=== PATIENT | female | born 1945 | race Caucasian/White ===

== ENCOUNTER → 2018-01-25 | Outpatient (CLI) | payer MEDICARE, OTHER ==
[~2018-01-25] MED LIST: LISI5 PO; PARO25 PO; Pepcid20 MG PO; Prednisone20 MG PO
== END | disposition home or self-care (01) ==
LOC: LAB EV 13:27 → LAB SHORT 13:27
DX: R05 Cough (principal)
CPT/HCPCS: 87070

== ENCOUNTER → 2021-03-16 | Outpatient (CLI) | payer MEDICARE, OTHER ==
[2021-03-16 14:01] LABS: BASOPHILS ABSOLUTE AUTO 0.02 K/mm3 (0.00-0.23); BASOPHILS PERCENT AUTO 1 % (0-2); EOSINOPHILS ABSOLUTE AUTO 0.09 K/mm3 (0.00-0.68); EOSINOPHILS PERCENT AUTO 3 % (0-6); Hematocrit 42.9 % (33.0-51.0); Hemoglobin 13.6 g/dL (11.5-16.0); IMMATURE GRAN ABSOLUTE AUTO 0.03 K/mm3 (0.00-0.10); IMMATURE GRAN PERCENT AUTO 1 % (0-1); LYMPHOCYTES ABSOLUTE AUTO 1.06 K/mm3 (0.84-5.20); LYMPHOCYTES PERCENT AUTO 29 % (21-46); MONOCYTES ABSOLUTE AUTO 0.32 K/mm3 (0.16-1.47); MONOCYTES PERCENT AUTO 9 % (4-13); Mean Corpuscular HGB 33.7 pg (26.0-34.0); Mean Corpuscular HGB Conc 31.7 g/dL (31.5-36.5); Mean Corpuscular Volume 106 fL (80-100); Mean Platelet Volume 10.9 fL (9.1-12.4); NEUTROPHILS ABSOLUTE AUTO 2.11 K/mm3 (1.96-9.15); NEUTROPHILS PERCENT AUTO 58 % (41-73); Platelet Count 246 K/mm3 (150-400); RDW Coefficient Variation 13.1 % (11.7-14.2); RDW Standard Deviation 51.5 fL (35.1-46.3); Red Blood Cell Count 4.04 M/mm3 (3.80-5.20); White Blood Cell Count 3.63 K/mm3 (4.00-11.30)
[2021-03-16 14:28] LABS: Albumin, Blood 3.6 g/dL (3.4-5.0); Albumin/Globulin Ratio 0.9 (0.8-1.8); Bilirubin, Total 0.2 mg/dL (0.1-1.0); Bun/Creatinine Ratio 12.7 (12.0-20.0); Calcium, Blood 10.1 mg/dL (8.5-10.1); Creatinine, Blood 1.1 mg/dL (0.40-1.00); Globulin, Blood 3.9 g/dL (2.2-4.0); Potassium, Blood 4.8 mmol/L (3.5-5.5); Total Protein, Blood 7.5 g/dL (6.4-8.2)
== END | disposition home or self-care (01) ==
LOC: LAB SHORT 12:26 → LAB 12:26
PROVIDERS: Internal Medicine Rheumatology
DX: L40.50 Arthropathic psoriasis, unspecified (principal)
CPT/HCPCS: 80053; 85025; 85651

== ENCOUNTER 2021-03-28 09:27 | Emergency (ER) | payer MEDICARE, OTHER ==
[~2021-03-28] VITALS: Ht 170.2 cm; Wt 81.7 kg
[2021-03-28] MEDS ORDERED: OMEP20ER PO (13:10)
[2021-03-28] MEDS ORDERED: Miralax17 GM PO (13:16)
[2021-03-28] MEDS ORDERED: Percocet 5-3251 EACH PO (13:16)
[2021-03-28 13:59] LABS: BASOPHILS ABSOLUTE AUTO 0.02 K/mm3 (0.00-0.23); BASOPHILS PERCENT AUTO 0 % (0-2); EOSINOPHILS ABSOLUTE AUTO 0.03 K/mm3 (0.00-0.68); EOSINOPHILS PERCENT AUTO 1 % (0-6); Hematocrit 42.6 % (33.0-51.0); Hemoglobin 13.9 g/dL (11.5-16.0); IMMATURE GRAN ABSOLUTE AUTO 0.03 K/mm3 (0.00-0.10); IMMATURE GRAN PERCENT AUTO 1 % (0-1); LYMPHOCYTES PERCENT AUTO 17 % (21-46); MONOCYTES ABSOLUTE AUTO 0.47 K/mm3 (0.16-1.47); MONOCYTES PERCENT AUTO 8 % (4-13); Mean Corpuscular HGB 33.6 pg (26.0-34.0); Mean Corpuscular HGB Conc 32.6 g/dL (31.5-36.5); Mean Corpuscular Volume 103 fL (80-100); Mean Platelet Volume 10.7 fL (9.1-12.4); NEUTROPHILS ABSOLUTE AUTO 4.45 K/mm3 (1.96-9.15); NEUTROPHILS PERCENT AUTO 74 % (41-73); Platelet Count 215 K/mm3 (150-400); RDW Coefficient Variation 12.9 % (11.7-14.2); RDW Standard Deviation 49.1 fL (35.1-46.3); Red Blood Cell Count 4.14 M/mm3 (3.80-5.20)
[2021-03-28 14:24] LABS: Albumin, Blood 3.8 g/dL (3.4-5.0); Bilirubin, Total 0.6 mg/dL (0.1-1.0); Creatinine, Blood 1.08 mg/dL (0.40-1.00); Globulin, Blood 3.9 g/dL (2.2-4.0); Potassium, Blood 4.5 mmol/L (3.5-5.5); Total Protein, Blood 7.7 g/dL (6.4-8.2)
[2021-03-28 15:29] LABS: SARS-Cov-2 (COVID-19) PCR, MMC NEGATIVE (NEGATIVE)
[2021-03-29] MEDS ORDERED: PEPCID20 MG PO (14:11)
[2021-03-29] MEDS ORDERED: PRED20 PO (14:12)
== END 2021-03-28 14:30 | disposition home or self-care (01) ==
LOC: ER 09:27
PROVIDERS: Emergency Medicine
DX: S82.852A Displaced trimalleolar fracture of left lower leg, initial encounter for closed fracture (principal); I10 Essential (primary) hypertension; Z20.822 Contact with and (suspected) exposure to COVID-19; Z88.6 Allergy status to analgesic agent; Z88.8 Allergy status to other drugs, medicaments and biological substances; Z79.899 Other long term (current) drug therapy; W19.XXXA Unspecified fall, initial encounter
CPT/HCPCS: 27818; 73590; 73600; 73610; 80053; 85025; 96374; 99152; 99284-25; J1170; J2704; J7030; U0004

== ENCOUNTER 2021-03-30 09:38 | Day surgery (SDC) | payer MEDICARE, OTHER ==
[~2021-03-30] VITALS: Ht 170.2 cm; Wt 78.5 kg
[~2021-03-30 09:38] MED LIST changes: +Miralax17 GM PO; +OMEP20ER PO; +PEPCID20 MG PO; +PRED20 PO; +Percocet 5-3251 EACH PO
[2021-03-30] MEDS ORDERED: OMEP20ER (10:25)
[2021-03-30] MEDS ORDERED: CYAN500 (10:26)
[2021-03-30] MEDS ORDERED: VITAMIN D310 MC4 (10:26)
[2021-03-30] MEDS ORDERED: COSENTYX P150 MG/11 SQ (10:27)
[2021-03-30] MEDS ORDERED: CODACE30 PO (10:28)
== END 2021-03-30 15:06 | disposition home or self-care (01) ==
LOC: ORSCMMR 09:38 → ORSCSDS 09:38 → ORSCMMR 11:00
PROVIDERS: Orthopaedic Surgery
PROC: 0QSK04Z Reposition Left Fibula with Internal Fixation Device, Open Approach (ICD-10-PCS; principal; 2021-03-30 11:00)
PROC: 0QSH04Z Reposition Left Tibia with Internal Fixation Device, Open Approach (ICD-10-PCS; principal; 2021-03-30 11:00)
PROC: 0QSH0ZZ Reposition Left Tibia, Open Approach (ICD-10-PCS; principal; 2021-03-30 11:00)
DX: S82.852A Displaced trimalleolar fracture of left lower leg, initial encounter for closed fracture (principal); I10 Essential (primary) hypertension; Z87.891 Personal history of nicotine dependence; E78.5 Hyperlipidemia, unspecified; K21.9 Gastro-esophageal reflux disease without esophagitis; N18.9 Chronic kidney disease, unspecified; Z79.899 Other long term (current) drug therapy
CPT/HCPCS: 93005; 93010; A9270; C1713; C1769; J0690; J1100; J2250; J2370; J2405; J2704; J3010; J7120

== ENCOUNTER → 2021-10-03 | Outpatient (CLI) | payer MEDICARE, OTHER ==
[~2021-10-03] MED LIST changes: +CODACE30 PO; +COSENTYX P150 MG/11 SQ; +CYAN500; +OMEP20ER; +VITAMIN D310 MC4
[2021-10-03 15:38] LABS: Creatinine Urine 44.7 mg/dL (27.00-270.00)
[2021-10-03 15:44] LABS: Calcium, Urine 5.1 mg/dL (< 17.5)
== END | disposition home or self-care (01) ==
LOC: LAB SHORT 08:30
PROVIDERS: Internal Medicine Endocrinology, Diabetes & Metabolism
DX: E21.0 Primary hyperparathyroidism (principal)
CPT/HCPCS: 81050; 82340; 82570

== ENCOUNTER → 2022-04-19 | Outpatient (CLI) | payer MEDICARE, OTHER ==
[2022-04-19 18:12] LABS: BASOPHILS ABSOLUTE AUTO 0.02 K/mm3 (0.00-0.23); BASOPHILS PERCENT AUTO 0 % (0-2); EOSINOPHILS ABSOLUTE AUTO 0.11 K/mm3 (0.00-0.68); EOSINOPHILS PERCENT AUTO 2 % (0-6); Hematocrit 39.2 % (33.0-51.0); IMMATURE GRAN ABSOLUTE AUTO 0.02 K/mm3 (0.00-0.10); IMMATURE GRAN PERCENT AUTO 0 % (0-1); LYMPHOCYTES ABSOLUTE AUTO 1.25 K/mm3 (0.84-5.20); LYMPHOCYTES PERCENT AUTO 23 % (21-46); MONOCYTES ABSOLUTE AUTO 0.37 K/mm3 (0.16-1.47); MONOCYTES PERCENT AUTO 7 % (4-13); Mean Corpuscular HGB 34.2 pg (26.0-34.0); Mean Corpuscular HGB Conc 33.2 g/dL (31.5-36.5); Mean Corpuscular Volume 103 fL (80-100); Mean Platelet Volume 11.1 fL (9.1-12.4); NEUTROPHILS ABSOLUTE AUTO 3.62 K/mm3 (1.96-9.15); NEUTROPHILS PERCENT AUTO 67 % (41-73); Platelet Count 240 K/mm3 (150-400); RDW Coefficient Variation 12.9 % (11.7-14.2); White Blood Cell Count 5.39 K/mm3 (4.00-11.30)
[2022-04-19 19:19] LABS: Albumin/Globulin Ratio 1.2 (0.8-1.8); Bilirubin, Total 0.3 mg/dL (0.1-1.0); Bun/Creatinine Ratio 15.1 (12.0-20.0); Calcium, Blood 9.8 mg/dL (8.5-10.1); Creatinine, Blood 1.06 mg/dL (0.40-1.00); Globulin, Blood 3.3 g/dL (2.2-4.0); Potassium, Blood 4.8 mmol/L (3.5-5.5); Total Protein, Blood 7.3 g/dL (6.4-8.2)
== END | disposition home or self-care (01) ==
LOC: LAB 14:53 → LAB SHORT 14:53
PROVIDERS: Internal Medicine Rheumatology
DX: L40.50 Arthropathic psoriasis, unspecified (principal)
CPT/HCPCS: 80053; 85025; 85651

== ENCOUNTER → 2022-10-18 | Outpatient (CLI) | payer MEDICARE, OTHER ==
[2022-10-18 16:46] LABS: BASOPHILS ABSOLUTE AUTO 0.03 K/mm3 (0.00-0.23); BASOPHILS PERCENT AUTO 1 % (0-2); EOSINOPHILS ABSOLUTE AUTO 0.17 K/mm3 (0.00-0.68); EOSINOPHILS PERCENT AUTO 4 % (0-6); Hematocrit 39.5 % (33.0-51.0); Hemoglobin 12.9 g/dL (11.5-16.0); IMMATURE GRAN ABSOLUTE AUTO 0.01 K/mm3 (0.00-0.10); IMMATURE GRAN PERCENT AUTO 0 % (0-1); LYMPHOCYTES ABSOLUTE AUTO 1.29 K/mm3 (0.84-5.20); LYMPHOCYTES PERCENT AUTO 32 % (21-46); MONOCYTES ABSOLUTE AUTO 0.38 K/mm3 (0.16-1.47); MONOCYTES PERCENT AUTO 9 % (4-13); Mean Corpuscular HGB 33.5 pg (26.0-34.0); Mean Corpuscular HGB Conc 32.7 g/dL (31.5-36.5); Mean Corpuscular Volume 103 fL (80-100); Mean Platelet Volume 11.2 fL (9.1-12.4); NEUTROPHILS ABSOLUTE AUTO 2.16 K/mm3 (1.96-9.15); NEUTROPHILS PERCENT AUTO 54 % (41-73); Platelet Count 235 K/mm3 (150-400); RDW Coefficient Variation 13.4 % (11.7-14.2); RDW Standard Deviation 51.3 fL (35.1-46.3); Red Blood Cell Count 3.85 M/mm3 (3.80-5.20); White Blood Cell Count 4.04 K/mm3 (4.00-11.30)
[2022-10-18 17:13] LABS: Albumin, Blood 3.9 g/dL (3.4-5.0); Albumin/Globulin Ratio 1.1 (0.8-1.8); Bilirubin, Total 0.2 mg/dL (0.1-1.0); Bun/Creatinine Ratio 13.4 (12.0-20.0); Calcium, Blood 10.2 mg/dL (8.5-10.1); Creatinine, Blood 0.97 mg/dL (0.40-1.00); Globulin, Blood 3.4 g/dL (2.2-4.0); Potassium, Blood 5.4 mmol/L (3.5-5.5); Total Protein, Blood 7.3 g/dL (6.4-8.2)
== END | disposition home or self-care (01) ==
LOC: LAB SHORT 15:03 → LAB 15:03
PROVIDERS: Internal Medicine Rheumatology
DX: L40.50 Arthropathic psoriasis, unspecified (principal)
CPT/HCPCS: 80053; 85025; 85651

== ENCOUNTER → 2022-12-28 | Outpatient (CLI) | payer MEDICARE, OTHER | END | disposition home or self-care (01) | LOC: LAB SHORT 10:37 → LAB 10:37 | DX: N39.0 Urinary tract infection, site not specified (principal) | CPT/HCPCS: 87077; 87086; 87186 ==

== ENCOUNTER → 2023-01-25 | Outpatient (CLI) | payer MEDICARE, OTHER ==
[2023-01-25 14:52] LABS: BASOPHILS ABSOLUTE AUTO 0.03 K/mm3 (0.00-0.23); BASOPHILS PERCENT AUTO 1 % (0-2); EOSINOPHILS ABSOLUTE AUTO 0.33 K/mm3 (0.00-0.68); EOSINOPHILS PERCENT AUTO 8 % (0-6); Hematocrit 41.1 % (33.0-51.0); Hemoglobin 13.5 g/dL (11.5-16.0); IMMATURE GRAN ABSOLUTE AUTO 0.02 K/mm3 (0.00-0.10); IMMATURE GRAN PERCENT AUTO 1 % (0-1); LYMPHOCYTES ABSOLUTE AUTO 1.15 K/mm3 (0.84-5.20); LYMPHOCYTES PERCENT AUTO 26 % (21-46); MONOCYTES PERCENT AUTO 9 % (4-13); Mean Corpuscular HGB 33.8 pg (26.0-34.0); Mean Corpuscular HGB Conc 32.8 g/dL (31.5-36.5); Mean Corpuscular Volume 103 fL (80-100); NEUTROPHILS ABSOLUTE AUTO 2.46 K/mm3 (1.96-9.15); NEUTROPHILS PERCENT AUTO 56 % (41-73); Platelet Count 242 K/mm3 (150-400); RDW Coefficient Variation 13.2 % (11.7-14.2); RDW Standard Deviation 50.4 fL (35.1-46.3); White Blood Cell Count 4.39 K/mm3 (4.00-11.30)
[2023-01-25 15:20] LABS: Albumin/Globulin Ratio 1.1 (0.8-1.8); Bilirubin, Total 0.4 mg/dL (0.1-1.0); Bun/Creatinine Ratio 11.4 (12.0-20.0); Calcium, Blood 10.2 mg/dL (8.5-10.1); Creatinine, Blood 1.14 mg/dL (0.40-1.00); Globulin, Blood 3.5 g/dL (2.2-4.0); Potassium, Blood 4.1 mmol/L (3.5-5.5); Total Protein, Blood 7.5 g/dL (6.4-8.2)
== END | disposition home or self-care (01) ==
LOC: LAB SHORT 11:29 → LAB 11:29
PROVIDERS: Internal Medicine Rheumatology
DX: L40.50 Arthropathic psoriasis, unspecified (principal)
CPT/HCPCS: 80053; 85025; 85651

== ENCOUNTER 2024-03-10 10:00 | Day surgery (SDC) | payer MEDICARE, OTHER ==
[2024-03-10] VITALS (12 sets, daily range): BP systolic 118–144; BP diastolic 66–102
[~2024-03-10] VITALS: Ht 170.2 cm; Wt 80.1 kg
[~2024-03-10 10:00] MED LIST changes: -OMEP20ER
[2024-03-10] MEDS ORDERED: CeFAZolin Sodium 2,000 MG in NS 100 ML IV SCH ×2 (10:30→20:00)
[2024-03-10] MEDS ORDERED: Acetaminophen 500 MG Tab PO SCH ×2 (10:30→16:00)
[2024-03-10] MEDS ORDERED: Ropivacaine 0.5% HCl/Pf 123.125 MG,EPINEPHrine HCL 0.25 MG,Clonidine HCl/Pf 40 MCG in N... INFIL SCH (10:30)
[2024-03-10] MEDS ORDERED: OxyCODONE HCL 10 MG TABCR PO SCH (10:30)
[2024-03-10] MEDS ORDERED: Chlorhexidine Mouth Care 15 ML UDC MT SCH (10:30)
[2024-03-10] MEDS ORDERED: Lactated Ringer's 1,000 ML IV SCH ×2 (10:30→15:40)
[2024-03-10] MEDS ORDERED: Tranexamic Acid 100 ML IV SCH (10:36)
[2024-03-10] MEDS ORDERED: Vancomycin HCL 1,000 MG in NS 250 ML IV SCH (11:05)
[2024-03-10] MEDS ORDERED: CeFAZolin Sodium 2,000 MG VIAL ONE (11:06)
[2024-03-10] MEDS ORDERED: propofoL 60 ML IV ONE (11:30)
[2024-03-10] MEDS ORDERED: Midazolam HCl 1MG / ML 2ML Vial ONE (11:43)
--- NOTE | 2024-03-10 11:46 | NUR ---
PRE OP NOTE PT A&OX4, BREATHING RA, PAIN AT BASELINE 2/2 ARTHRITIS, Ambulatory in Day Surgery Patient confirms NPO status and agrees with scheduled surgery. Pre-Op teaching done. Pt verbalizes understanding. Surgical site prepped with 2% Chlorhexidine cloth wipe.PT MSSA+ AND DID NOT HAV THE 5 DAYS OF TREATMENTS, VANCO VERBAL ORDERED BY DR THOMAS AND STARTED PRIOR TO SURGERY. VANCO STARTED PB WITH SLOW DRIP AND NO PUMP PER DR HAIR. AT BEDSIDE.
[2024-03-10] MEDS ORDERED: Phenylephrine HCl 10mg/ml 1 ml Vial ONE (12:03)
--- NOTE | 2024-03-10 12:18 | NUR ---
03/10/24 1218 Mady Garcia SPINAL BLOCK COMPLETED BY UPON ENTRY TO OR. PATIENT TOLERATED WELL.
[2024-03-10] MEDS ORDERED: propofoL 40 ML IV ONE (12:36)
--- NOTE | 2024-03-10 14:10 | NUR ---
PT ARRIVED TO THE FLOOR VIA HOSPITAL BED. A&O X4. VSS. INCISION SITE C/D/I COVERED WITH AQUACEL. COLD PACK IN PLACE. WIGGLES TOES, PPP, UNABLE TO FEEL SENSATION AT THIS TIME. SNACKS AND WATER AT BEDSIDE. CALL LIGHT WITHIN REACH. BED IN LOWEST POSITION.
[2024-03-10] MEDS ORDERED: HYDROmorphone HCl/Pf 1MG SYR IV PRN (15:40)
[2024-03-10] MEDS ORDERED: OxyCODONE HCL 5 MG TAB PO PRN ×2 (15:40)
[2024-03-10] MEDS ORDERED: Ondansetron HCl 2 MG / ML 2ML Vial IV PRN (15:40)
[2024-03-10] MEDS ORDERED: DiphenhydrAMINE HCL 25 MG Cap PO PRN (15:40)
[2024-03-10] MEDS ORDERED: Apixaban 5 MG Tab PO SCH (21:00)
[2024-03-11 05:06] LABS: BASOPHILS ABSOLUTE AUTO 0.02 K/mm3 (0.00-0.23); BASOPHILS PERCENT AUTO 0 % (0-2); EOSINOPHILS ABSOLUTE AUTO 0.11 K/mm3 (0.00-0.68); EOSINOPHILS PERCENT AUTO 2 % (0-6); Hematocrit 34.1 % (33.0-51.0); Hemoglobin 10.9 g/dL (11.5-16.0); IMMATURE GRAN ABSOLUTE AUTO 0.04 K/mm3 (0.00-0.10); IMMATURE GRAN PERCENT AUTO 1 % (0-1); LYMPHOCYTES ABSOLUTE AUTO 0.54 K/mm3 (0.84-5.20); LYMPHOCYTES PERCENT AUTO 8 % (21-46); MONOCYTES PERCENT AUTO 7 % (4-13); Mean Corpuscular HGB 33.7 pg (26.0-34.0); Mean Corpuscular Volume 106 fL (80-100); Mean Platelet Volume 10.3 fL (9.1-12.4); NEUTROPHILS ABSOLUTE AUTO 6.03 K/mm3 (1.96-9.15); NEUTROPHILS PERCENT AUTO 83 % (41-73); Platelet Count 205 K/mm3 (150-400); RDW Coefficient Variation 13.2 % (11.7-14.2); RDW Standard Deviation 51.9 fL (35.1-46.3); Red Blood Cell Count 3.23 M/mm3 (3.80-5.20); White Blood Cell Count 7.24 K/mm3 (4.00-11.30)
--- NOTE | 2024-03-11 05:16 | NUR ---
SHIFT SUMMARY PT IS POD1 FOR L TKA. PT IS TOLERATING REG DIET AND FLUIDS, VOIDING, REPORTS RELIEF FROM PAIN W/ PO PAIN MEDS. SALINE LOCKED. SBA W/ FWW AND GB TO BATHROOM. DRESSING C/D/I. YEISON MARTINEZ, POLAR PACK ON. PT ASSISTED W/ DRESSING THIS MORNING AND IN RECLINER. CALL LIGHT IN PLACE. PLAN TO D/C TODAY AFTER PT.
[2024-03-11 05:42] LABS: Bun/Creatinine Ratio 10.2 (12.0-20.0); Calcium, Blood 8.8 mg/dL (8.5-10.1); Creatinine, Blood 1.28 mg/dL (0.40-1.00); Magnesium, Blood 1.8 mg/dL (1.6-2.4); Potassium, Blood 4.2 mmol/L (3.5-5.5)
[2024-03-11 05:45] VITALS: BP 115/80
[2024-03-11 07:15] VITALS: BP 115/79
[2024-03-11] MEDS ORDERED: ACET500 PO (07:45)
[2024-03-11] MEDS ORDERED: OXYC5 PO (07:45)
[2024-03-11] MEDS ORDERED: XARELTO10 M4 PO (07:46)
[2024-03-11] MEDS ORDERED: Omeprazole 20 MG CapCR PO SCH (09:00)
[2024-03-11] MEDS ORDERED: PARoxetine HCl 10 MG Tab PO SCH ×2 (09:00)
[2024-03-11] MEDS ORDERED: Lisinopril 5 MG Tab PO SCH (09:00)
--- NOTE | 2024-03-11 10:43 | NUR ---
DISCHARGE NOTE POD 1 LTKA. INCISION SITE C/D/I. EATING/DRINKING/VOIDING WITHOUT ISSUE. WORKED AND CLEARED BY PHYSICAL THERAPY THIS MORNING. PAIN MANAGED. VSS. PPP. DENIES N/T. EXPRESSED UNDERSTANDING OF DISCHARGE TEACHING BY KYLEE EUCEDA. SENT HOME WITH ADDITIONAL BANDAGES FOR USE AT HOME. IV WAS REMOVED PRIOR. WHEELED OUT TO HUSBANDS CAR VIA WHEELCHAIR.
--- NOTE | 2024-03-11 10:52 | NUR ---
DISCHARGE POD 1 LTKA PT AMBULATED WELL WITH THERAPY TODAY. PAIN CONTROLLED PER EMAR. ALL BELONGINGS SENT WITH PATIENT AND FAMILY. ALL QUESTIONS ANSWERED. EXTRA AQUACEL DRESSINGS SENT. CURRENT DRESSING REMAINS CDI. ESCORTED OUT VIA WHEELCHAIR.
[2024-03-11] MEDS ORDERED: Rivaroxaban 10 MG Tab PO SCH (13:00)
== END 2024-03-11 09:30 | disposition home or self-care (01) ==
LOC: ORSCMMR 10:00 → ORD 13:00 → ORSCMMR 13:00 → SURS 14:15 → ORD 15:45 → ORSCMMR 03-11 09:30
PROVIDERS: Orthopaedic Surgery
PROC: 0SRD0JA Replacement of Left Knee Joint with Synthetic Substitute, Uncemented, Open Approach (ICD-10-PCS; principal; 2024-03-10 11:30)
PROC: 8E0Y0CZ Robotic Assisted Procedure of Lower Extremity, Open Approach (ICD-10-PCS; principal; 2024-03-10 11:30)
DX: M17.12 Unilateral primary osteoarthritis, left knee (principal); E11.22 Type 2 diabetes mellitus with diabetic chronic kidney disease; I12.9 Hypertensive chronic kidney disease with stage 1 through stage 4 chronic kidney disease, or unspecified chronic kidney disease; N18.9 Chronic kidney disease, unspecified; Z87.891 Personal history of nicotine dependence; Z79.899 Other long term (current) drug therapy
CPT/HCPCS: 27447; 0055T; 36415; 73560-LT; 80048; 83735; 85025; 97110; 97162; 97530; A9270; C1713; C1776; J0171; J0690; J0735; J2250; J2371; J2704; J2795; J3370; J7050; J7120

== ENCOUNTER → 2024-07-31 | Outpatient (CLI) | payer MEDICARE, OTHER ==
[~2024-07-31] MED LIST changes: +ACET500 PO; +OXYC5 PO; +XARELTO10 M4 PO
[2024-07-31 16:27] LABS: Albumin, Blood 4.1 g/dL (3.4-5.0); Albumin/Globulin Ratio 1.2 (0.8-1.8); Bilirubin, Total 0.7 mg/dL (0.1-1.0); Bun/Creatinine Ratio 10.9 (12.0-20.0); Calcium, Blood 10.4 mg/dL (8.5-10.1); Creatinine, Blood 1.19 mg/dL (0.40-1.00); Globulin, Blood 3.3 g/dL (2.2-4.0); Potassium, Blood 4.5 mmol/L (3.5-5.5); Total Protein, Blood 7.4 g/dL (6.4-8.2)
[2024-07-31 16:32] LABS: BASOPHILS ABSOLUTE AUTO 0.03 K/mm3 (0.00-0.23); BASOPHILS PERCENT AUTO 1 % (0-2); EOSINOPHILS ABSOLUTE AUTO 0.33 K/mm3 (0.00-0.68); EOSINOPHILS PERCENT AUTO 6 % (0-6); Hematocrit 38.9 % (33.0-51.0); Hemoglobin 12.9 g/dL (11.5-16.0); IMMATURE GRAN ABSOLUTE AUTO 0.02 K/mm3 (0.00-0.10); IMMATURE GRAN PERCENT AUTO 0 % (0-1); LYMPHOCYTES ABSOLUTE AUTO 1.42 K/mm3 (0.84-5.20); LYMPHOCYTES PERCENT AUTO 24 % (21-46); MONOCYTES ABSOLUTE AUTO 0.41 K/mm3 (0.16-1.47); MONOCYTES PERCENT AUTO 7 % (4-13); Mean Corpuscular HGB 32.8 pg (26.0-34.0); Mean Corpuscular HGB Conc 33.2 g/dL (31.5-36.5); Mean Corpuscular Volume 99 fL (80-100); Mean Platelet Volume 10.7 fL (9.1-12.4); NEUTROPHILS ABSOLUTE AUTO 3.65 K/mm3 (1.96-9.15); NEUTROPHILS PERCENT AUTO 62 % (41-73); Platelet Count 238 K/mm3 (150-400); RDW Coefficient Variation 13.3 % (11.7-14.2); RDW Standard Deviation 48.2 fL (35.1-46.3); Red Blood Cell Count 3.93 M/mm3 (3.80-5.20); White Blood Cell Count 5.86 K/mm3 (4.00-11.30)
== END | disposition home or self-care (01) ==
LOC: LAB 14:20 → LAB SHORT 14:20
PROVIDERS: Internal Medicine Rheumatology
DX: L40.50 Arthropathic psoriasis, unspecified (principal)
CPT/HCPCS: 80053; 85025; 85651

== ENCOUNTER 2024-08-19 07:55 | Emergency (ER) | payer MEDICARE, OTHER ==
[~2024-08-19] VITALS: Ht 170.2 cm; Wt 74.8 kg
[2024-08-19] MEDS ORDERED: HYDHCL25 PO (09:08)
[2024-08-19] MEDS ORDERED: COSENTYX P150 MG/1 M SC (09:08)
[2024-08-19] MEDS ORDERED: LISI20 PO (09:09)
[2024-08-19] MEDS ORDERED: TRAVOPROST2.5 ML (09:09)
[2024-08-19] MEDS ORDERED: PAXIL2010 PO (09:09)
[2024-08-19] MEDS ORDERED: Acetaminophen 500 MG Tab PO ONE (10:20)
[2024-08-19] MEDS ORDERED: OxyCODONE HCL 5 MG TAB PO ONE (10:20)
[2024-08-19 11:13] VITALS: BP 142/72
== END 2024-08-19 11:10 | disposition home or self-care (01) ==
LOC: ER 07:55
DX: S42.291A Other displaced fracture of upper end of right humerus, initial encounter for closed fracture (principal); S42.211A Unspecified displaced fracture of surgical neck of right humerus, initial encounter for closed fracture; W10.9XXA Fall (on) (from) unspecified stairs and steps, initial encounter; I10 Essential (primary) hypertension; K21.9 Gastro-esophageal reflux disease without esophagitis; Z88.6 Allergy status to analgesic agent; Z88.8 Allergy status to other drugs, medicaments and biological substances; Z79.01 Long term (current) use of anticoagulants; Z79.899 Other long term (current) drug therapy
CPT/HCPCS: 70450; 71045; 72125; 73060; 73080; 73090; 73130; 93005; 93010; 99284-25; A9270

== ENCOUNTER 2024-08-20 11:29 | Emergency (ER) | payer MEDICARE, OTHER ==
[~2024-08-20] VITALS: Ht 170.2 cm; Wt 72.6 kg
[~2024-08-20 11:29] MED LIST changes: +COSENTYX P150 MG/1 M SC; +HYDHCL25 PO; +LISI20 PO; +PAXIL2010 PO; +TRAVOPROST2.5 ML
[2024-08-20] MEDS ORDERED: OxyCODONE HCL 5 MG TAB PO ONE ×2 (12:35→16:35)
[2024-08-20 12:43] LABS: BASOPHILS ABSOLUTE AUTO 0.02 K/mm3 (0.00-0.23); BASOPHILS PERCENT AUTO 0 % (0-2); EOSINOPHILS PERCENT AUTO 1 % (0-6); Hematocrit 33.8 % (33.0-51.0); Hemoglobin 11.2 g/dL (11.5-16.0); IMMATURE GRAN ABSOLUTE AUTO 0.05 K/mm3 (0.00-0.10); IMMATURE GRAN PERCENT AUTO 1 % (0-1); LYMPHOCYTES ABSOLUTE AUTO 0.65 K/mm3 (0.84-5.20); LYMPHOCYTES PERCENT AUTO 6 % (21-46); MONOCYTES ABSOLUTE AUTO 0.54 K/mm3 (0.16-1.47); MONOCYTES PERCENT AUTO 5 % (4-13); Mean Corpuscular HGB 32.8 pg (26.0-34.0); Mean Corpuscular HGB Conc 33.1 g/dL (31.5-36.5); Mean Corpuscular Volume 99 fL (80-100); Mean Platelet Volume 10.2 fL (9.1-12.4); NEUTROPHILS ABSOLUTE AUTO 8.76 K/mm3 (1.96-9.15); NEUTROPHILS PERCENT AUTO 87 % (41-73); Platelet Count 242 K/mm3 (150-400); RDW Coefficient Variation 13.2 % (11.7-14.2); Red Blood Cell Count 3.41 M/mm3 (3.80-5.20); White Blood Cell Count 10.12 K/mm3 (4.00-11.30)
[2024-08-20 13:00] LABS: Albumin, Blood 3.6 g/dL (3.4-5.0); Bilirubin, Total 0.6 mg/dL (0.1-1.0); Bun/Creatinine Ratio 17.6 (12.0-20.0); Calcium, Blood 9.6 mg/dL (8.5-10.1); Creatinine, Blood 1.19 mg/dL (0.40-1.00); Globulin, Blood 3.6 g/dL (2.2-4.0); Magnesium, Blood 1.8 mg/dL (1.6-2.4); Potassium, Blood 4.4 mmol/L (3.5-5.5); Total Protein, Blood 7.2 g/dL (6.4-8.2)
[2024-08-20 16:30] VITALS: BP 110/68
== END 2024-08-20 16:58 | disposition home or self-care (01) ==
LOC: ER 11:29
PROVIDERS: Student in an Organized Health Care Education/Training Program
DX: R55 Syncope and collapse (principal); W19.XXXA Unspecified fall, initial encounter; I10 Essential (primary) hypertension; Z88.6 Allergy status to analgesic agent; Z88.8 Allergy status to other drugs, medicaments and biological substances; Z79.899 Other long term (current) drug therapy
CPT/HCPCS: 70450; 80053; 83735; 84484; 85025; 99285-25; A9270

== ENCOUNTER → 2024-08-22 | Outpatient (CLI) | payer MEDICARE, OTHER | LOC: LAB 13:15 → LAB SHORT 13:15 | DX: R55 Syncope and collapse (principal) | CPT/HCPCS: 87077; 87086; 87147; 87186 ==

== ENCOUNTER 2024-09-08 10:29 | Day surgery (SDC) | payer MEDICARE, OTHER ==
[~2024-09-08] VITALS: Ht 170.2 cm; Wt 73.5 kg
[2024-09-08] VITALS (14 sets, daily range): BP systolic 110–129; BP diastolic 67–85
[2024-09-08] MEDS ORDERED: Lactated Ringer's 1,000 ML IV SCH (10:55)
[2024-09-08] MEDS ORDERED: CeFAZolin Sodium 2,000 MG in NS 100 ML IV SCH (10:55)
--- NOTE | 2024-09-08 11:25 | NUR ---
Ambulatory in Day Surgery. Surgical site prepped with 2% Chlorhexidine cloth wipe. History, Chart, Medications and Allergies reviewed before start of procedure. Pre-Op teaching done. Pt verbalizes understanding. Patient confirms NPO status and agrees with scheduled surgery. Patient States Post-Procedure ride home has been arranged. Pt belongings and glasses with spouse.
[2024-09-08] MEDS ORDERED: Midazolam HCl 1MG / ML 2ML Vial ONE (12:58)
[2024-09-08] MEDS ORDERED: Bupivacaine 0.5% HCl 5 MG/ML 30MLVIAL ONE (12:58)
[2024-09-08] MEDS ORDERED: Rocuronium Bromide 10 MG/ML 5ML Injection IV ONE ×2 (13:13→16:19)
[2024-09-08] MEDS ORDERED: propofoL 20 ML IV ONE (13:13)
[2024-09-08] MEDS ORDERED: Phenylephrine HCl 100 MCG/ML-NS 10MLSYR (1MG/10ML) ONE ×2 (13:57→16:19)
[2024-09-08] MEDS ORDERED: Ketorolac Tromethamine 30mg Vial ONE (13:58)
[2024-09-08] MEDS ORDERED: Dexamethasone Sod Phos 10 MG/ML 1ML VIAL ONE (13:58)
[2024-09-08] MEDS ORDERED: Ondansetron HCl 2 MG / ML 2ML Vial ONE (13:58)
--- NOTE | 2024-09-08 14:09 | NUR ---
DR HAIR TO DAY SURGERY TO PERFORM BLOCK PER DR THOMAS REQUEST/ORDER SHEET. O2 VIA NC PLACED ON PT AT 2L PER DR HAIR'S ORDERS. PULSE OX IN PLACE T/O BLOCK. TIME OUT PERFORMED AT 1317 WITH CONSENT, PT AGREES. BLOCK STARTED AT 1318 AND FINISHED AT 1325. SEE ANESTHESIA BLOCK NOTES FOR DETAILS.
[2024-09-08] MEDS ORDERED: Tranexamic Acid 100 ML IV ONE ×3 (14:28→17:20)
[2024-09-08] MEDS ORDERED: Sugammadex Sodium 200 MG/2ML SDV (100 MG/ML) ONE (16:24)
--- NOTE | 2024-09-08 18:14 | NUR ---
Dressing to procedure site clean, dry, intact with minimal drainage. No swelling, erythema or bruising noted. Pt able to tolerate PO intake. Vital signs stable. Discharge instructions reviewed with patient. Patient verbalizes understanding. Copy given to patient to take home. Discharged via wheelchair to private car for ride home with spouse.
== END 2024-09-08 23:00 | disposition home or self-care (01) ==
LOC: ORSCMMR 10:29 → ORD 11:30 → ORSCMMR 11:30
PROVIDERS: Orthopaedic Surgery
PROC: 0PSC04Z Reposition Right Humeral Head with Internal Fixation Device, Open Approach (ICD-10-PCS; principal; 2024-09-08 13:30)
DX: S42.211A Unspecified displaced fracture of surgical neck of right humerus, initial encounter for closed fracture (principal); W18.30XA Fall on same level, unspecified, initial encounter; I10 Essential (primary) hypertension; F41.9 Anxiety disorder, unspecified; L40.50 Arthropathic psoriasis, unspecified; Z79.899 Other long term (current) drug therapy; Z87.891 Personal history of nicotine dependence
CPT/HCPCS: C1713; J0690; J1100; J1885; J2250; J2371; J2405; J2704; J7120